=== PATIENT | female | born 1985 | race African-American/Black ===

== ENCOUNTER 2018-01-23 17:08 | Emergency (ER) | payer SELFPAY ==
[2018-01-23 17:38] LABS: Bilirubin Negative (Negative); Blood, Urine Negative (Negative); Clarity CLEAR (Clear); Glucose, Urine (Dipstick) Negative (Negative); Leukocyte Trace (Negative); Nitrite Negative (Negative); Protein, Urine (Dipstick) Negative (Neg-Trace); Specific Gravity, Urine 1.012 (1.002-1.036); Urobilinogen 0.2 mg/dL (0.2-1.0)
[2018-01-23 17:41] LABS: Bacteria/HPF None Seen HPF (None Seen); Hyaline Casts/LPF 0-3 HYALINE CAST LPF (0-3 Hyaline); RBC/HPF 0-3 HPF (0-3); Squamous Epithelial 0-3 HPF (0-3); WBC/HPF 0-3 HPF (0-3)
[2018-01-23] MEDS ORDERED: Lidocaine Viscous Sol 2% 15 ml UD Cup ONE (17:47)
[2018-01-23] MEDS ORDERED: Mag-Al 1200 mg/1200 mg/30 ML UDCUP ONE (17:47)
[2018-01-23 17:50] LABS: #Basophils 0.1 thou/uL (0.0-0.2); #Eosinphils 0.1 thou/uL (0.0-0.7); #Monocytes 0.4 thou/uL (0.11-0.59); #Neutrophils 5.1 thou/uL (1.40-6.50); %Basophils 1.1 % (0.0-1.0); %Eosinophils 0.7 % (0.0-10.0); %Neutrophils 59.2 % (42.0-75.0); Hemoglobin 13.6 g/dL (12.0-16.0); Mean Corpuscular HGB CONC 32.6 g/dL (32.0-36.0); Mean Corpuscular Hemoglobin 33.7 pg (27.0-31.0); Mean Platelet Volume 7.8 fL (7.4-10.4); Platelet Count 256 thou/uL (130-400); RBC Distribution Width 12.3 % (11.5-14.5); Red Blood Cell (RBC) Count 4.04 mill/uL (4.20-5.40); White Blood Cell (WBC) Count 8.7 thou/uL (4.8-10.8)
--- NOTE | 2018-01-23 17:59 | RAD ---
LEFT KNEE: 01/23/18 Four views. HISTORY: Left knee pain. There is mild narrowing of the medial joint space. Mild degenerative spurring is seen from the medial femoral condyle. Minimal spurring from the posterior patella. Mild spurring from the tibial spines. No joint effusion. No fracture. IMPRESSION: There are mild degenerative changes primarily involving the medial joint space as described. POS: [facility]ONYA
[2018-01-23 18:10] LABS: ALT (SGPT) 14 U/L (8-55); AST (SGOT) 13 U/L (5-34); Albumin 3.7 g/dL (3.5-5.0); Alkaline Phosphatase 102 U/L (40-150); Anion Gap 9 mmol/L (10-20); BUN (Urea Nitrogen) 9 mg/dL (7.0-18.7); Bilirubin, Total 0.2 mg/dL (0.2-1.2); Calc. Creatinine Clearance 0 mL/min (70-130); Calcium 9.1 mg/dL (7.8-10.44); Carbon Dioxide 29 mmol/L (22-29); Chloride 104 mmol/L (98-107); Estimated GFR-MDRD 66; Glucose 96 mg/dL (70-105); Lipase 12 U/L (8-78); Potassium 3.4 mmol/L (3.5-5.1); Protein, Total 6.7 g/dL (6.0-8.3); Sodium 139 mmol/L (136-145)
[2018-01-23] MEDS ORDERED: Ketorolac Tromethamine 60 MG/2 ML VIAL ONE (18:40)
[2018-01-23 18:43] LABS: Pregnancy Test - Urine (BHCG) Negative (Negative); Pregu Control Background? CLEAR/WHITE (CLR/WHITE); Pregu Control Bar Appear? YES (CONTROL BAR); Specific Gravity 1.012 (1.002-1.036)
== END 2018-01-23 19:21 | disposition home or self-care (01) ==
LOC: ERS 17:08
DX: R10.9 Unspecified abdominal pain (principal); M25.562 Pain in left knee; F17.210 Nicotine dependence, cigarettes, uncomplicated
CPT/HCPCS: 36415; 80053; 81003; 81015; 81025; 83690; 85025; 96372; J1885

== ENCOUNTER 2019-01-24 13:55 | Emergency (ER) | payer SELFPAY ==
[2019-01-24 14:39] LABS: #Monocytes 0.4 thou/uL (0.11-0.59); #Neutrophils 5.9 thou/uL (1.40-6.50); %Basophils 0.4 % (0.0-1.0); %Eosinophils 0.4 % (0.0-10.0); %Lymphocytes 23.9 % (21.0-51.0); %Neutrophils 70.3 % (42.0-75.0); Hemoglobin 13.8 g/dL (12.0-16.0); Mean Corpuscular HGB CONC 32.1 g/dL (32.0-36.0); Mean Platelet Volume 8.4 fL (7.4-10.4); Platelet Count 261 thou/uL (130-400); Red Blood Cell (RBC) Count 4.18 mill/uL (4.20-5.40); White Blood Cell (WBC) Count 8.4 thou/uL (4.8-10.8)
[2019-01-24 15:06] LABS: Bilirubin Negative (Negative); Blood, Urine Negative (Negative); Clarity CLEAR (Clear); Glucose, Urine (Dipstick) Negative (Negative); Leukocyte Trace (Negative); Nitrite Negative (Negative); Protein, Urine (Dipstick) Negative (Neg-Trace); Specific Gravity, Urine 1.007 (1.002-1.036); Urobilinogen 0.2 mg/dL (0.2-1.0)
[2019-01-24 15:07] LABS: Bacteria/HPF None Seen HPF (None Seen); Hyaline Casts/LPF 0-3 HYALINE CAST LPF (0-3 Hyaline); Squamous Epithelial 0-3 HPF (0-3); WBC/HPF 0-3 HPF (0-3)
[2019-01-24 15:11] LABS: Pregnancy Test - Urine (BHCG) Negative (Negative); Pregu Control Background? CLEAR/WHITE (CLR/WHITE); Pregu Control Bar Appear? YES (CONTROL BAR); Specific Gravity 1.007 (1.002-1.036)
[2019-01-24 15:20] LABS: ALT (SGPT) 14 U/L (8-55); AST (SGOT) 14 U/L (5-34); Albumin 3.7 g/dL (3.5-5.0); Alkaline Phosphatase 82 U/L (40-150); Anion Gap 11 mmol/L (10-20); BUN (Urea Nitrogen) 6 mg/dL (7.0-18.7); Bilirubin, Total 0.4 mg/dL (0.2-1.2); Calc. Creatinine Clearance 0 mL/min (70-130); Calcium 9.5 mg/dL (7.8-10.44); Carbon Dioxide 26 mmol/L (22-29); Chloride 105 mmol/L (98-107); Estimated GFR-MDRD Greater than 90; Globulin 3.2 g/dL (2.4-3.5); Glucose 89 mg/dL (70-105); Lipase 8 U/L (8-78); Potassium 3.8 mmol/L (3.5-5.1); Protein, Total 6.9 g/dL (6.0-8.3); Sodium 138 mmol/L (136-145)
--- NOTE | 2019-01-24 15:30 | RAD ---
ACUTE ABDOMINAL SERIES: Date: 01/24/19 HISTORY: Abdominal pain, left flank pain. COMPARISON: None available. FINDINGS: CHEST X-RAY: The cardiac silhouette and pulmonary vasculature are within normal limits. Lungs are clear. No free i ntraperitoneal air is seen beneath the hemidiaphragms. Osseous structures are intact. There is mild r ight convex curvature of the thoracic spine. 2 VIEWS ABDOMEN: There is a small amount of retained fecal material seen throughout the colon. There are irregular inc reased density foci seen in the region of the ascending colon at the hepatic flexure, likely related to ingested material. Bowel gas pattern is otherwise nonspecific. No definite suspicious calcificatio ns are seen. Osseous structures are intact. IMPRESSION: Irregular increased density foci in the ascending colon at the hepatic flexure, probably related to i ngested material within the bowel. Bowel gas pattern is otherwise nonspecific. POS: [facility]ONYA
== END 2019-01-24 15:31 | disposition home or self-care (01) ==
LOC: ERS 13:55
DX: R10.12 Left upper quadrant pain (principal); F17.210 Nicotine dependence, cigarettes, uncomplicated
CPT/HCPCS: 36415; 74022; 80053; 81003; 81015; 81025; 83690; 85025

== ENCOUNTER 2020-02-04 17:00 | Emergency (ER) | payer SELFPAY ==
[2020-02-04] MEDS ORDERED: Ketorolac Tromethamine 60 MG/2 ML VIAL ONE (19:03)
== END 2020-02-04 19:09 | disposition home or self-care (01) ==
LOC: ERS 17:00
DX: S39.011A Strain of muscle, fascia and tendon of abdomen, initial encounter (principal); F17.210 Nicotine dependence, cigarettes, uncomplicated; W22.8XXA Striking against or struck by other objects, initial encounter
CPT/HCPCS: 96372; 99283; J1885

== ENCOUNTER 2021-05-10 18:45 | Emergency (ER) | payer MEDICAID, SELFPAY ==
[2021-05-10] MEDS ORDERED: Fluorescein Opthalmic Strip ONE (19:13)
[2021-05-10] MEDS ORDERED: Proparacaine 0.5% Opth 15 ML BOT ONE (19:19)
== END 2021-05-10 20:05 | disposition home or self-care (01) ==
LOC: ERS 18:45
DX: H57.89 Other specified disorders of eye and adnexa (principal); F17.210 Nicotine dependence, cigarettes, uncomplicated
CPT/HCPCS: 99282

== ENCOUNTER 2021-10-07 10:36 | Emergency (ER) | payer MEDICAID, SELFPAY ==
[2021-10-07] MEDS ORDERED: Proparacaine 0.5% Opth 15 ML BOT ONE (12:19)
[2021-10-07] MEDS ORDERED: Fluorescein Opthalmic Strip ONE (12:19)
[2021-10-07] MEDS ORDERED: Acetaminophen 500 MG TAB ONE (12:36)
== END 2021-10-07 13:05 | disposition home or self-care (01) ==
LOC: ERS 10:36
DX: H10.9 Unspecified conjunctivitis (principal); F17.210 Nicotine dependence, cigarettes, uncomplicated
CPT/HCPCS: 99283